=== PATIENT | female | born 1965 | race Caucasian/White ===

== ENCOUNTER → 2018-12-25 | Day surgery (SDC) | payer BC ==
[~2018-12-25] MED LIST: LIDOCAINE 2% JELLY 5 ML TUBE ONE
== END ==
LOC: END 08:00
PROVIDERS: ATTEND Surgery
DX: K44.9 Diaphragmatic hernia without obstruction or gangrene (principal); K21.9 Gastro-esophageal reflux disease without esophagitis
CPT/HCPCS: 91010